=== PATIENT | female | born 1950 | race Caucasian/White ===

== ENCOUNTER 2018-07-05 11:45 | Day surgery (SDC) | payer MEDICARE ==
[2018-07-04 14:54] VITALS: BMI 25.7
[2018-07-05] MEDS ORDERED: PROPOFOL 200 MG/20 ML VIAL ONE (13:24)
--- NOTE | 2018-07-05 14:36 | RAD ---
LEFT KNEE 2 VIEWS: HISTORY: Fall. Left knee injury. FINDINGS: Joint spaces are preserved. No acute fracture, dislocation, or fluid distention in the suprapatellar bursa. IMPRESSION: No acute osseous abnormalities are demonstrated. POS: TOÑA
--- NOTE | 2018-07-05 20:20 | OP ---
DATE OF PROCEDURE: 07/05/2018 TITLE OF PROCEDURE: Colonoscopy with biopsy. PREPROCEDURE DIAGNOSES: 1. Right lower quadrant pain. 2. History of diverticulosis. 3. Colon cancer screening. POSTPROCEDURE DIAGNOSES: 1. Exam to distal terminal ileum; good bowel preparation. 2. Normal terminal ileum. 3. Mild diffuse diverticulosis coli without evidence of bleeding or infection. 4. Diminutive polyp (2 mm) in the sigmoid colon, removed by cold forceps. 5. Small internal hemorrhoids. 6. Otherwise normal colonoscopy. PROCEDURE IN DETAIL: Written informed consent was obtained. Upon completion of the EGD, the patient was repositioned for the colonoscopy. Total intravenous anesthesia was provided by Dr. Lula Starr. The patient was in the left lateral decubitus position. A digital rectal exam showed small external tag. A Pentax video colonoscope was inserted through the anal canal and advanced under visualization to the cecum. Position in the cecum was verified by identification of the appendiceal orifice and the ileocecal valve. The valve was intubated and a brief inspection was made at the distal terminal ileum. Quality of bowel preparation was good. Each colon segment was examined carefully as the colonoscope was slowly withdrawn from the cecum. Vascular pattern and haustral folds appeared normal. The distal terminal ileum was normal in appearance. Frequent diverticular orifices were noted throughout the sigmoid colon, but there was no evidence of infection or bleeding. In the sigmoid colon, a 2 mm sessile polyp was identified and excised by cold biopsy forceps. The tissue was submitted to Pathology for examination. No other synchronous polyps were identified. In the rectum, a retroflex view demonstrated small internal hemorrhoids that were not actively bleeding. The colon was decompressed as the colonoscope was removed from the patient. She was transferred to the Day Stay Surgery area for postprocedure monitoring. There were no immediate complications. RECOMMENDATIONS: 1. Resume previous medications. 2. High-fiber diet. 3. Pending pathology results, would recommend at this juncture to repeat colonoscopy in 5 years. 4. Follow up in my office as per the EGD report. 5. We will obtain x-ray of the left knee to evaluate pain and bruising in this area after an accidental fall at the hospital. Job ID: [id number]
--- NOTE | 2018-07-05 20:28 | OP ---
DATE OF PROCEDURE: 07/05/2018 TITLE OF PROCEDURE: Esophagogastroduodenoscopy with Savary dilation over guidewire and biopsy. PREPROCEDURE DIAGNOSES: 1. Dysphagia. 2. History of eosinophilic esophagitis. POSTPROCEDURE DIAGNOSES: 1. Exam to second portion of duodenum. 2. Diffusely narrowed esophagus, consistent with the patient's previous history of eosinophilic esophagitis. 3. 3 cm hiatal hernia. 4. Normal stomach. 5. Normal duodenum. 6. Status post 11 mm, 12 mm, and 12.8 mm Savary dilation over guidewire. 7. Biopsies obtained in the lower esophagus for histology. PROCEDURE IN DETAIL: Written informed consent was obtained. The patient was brought to the endoscopy suite. Total intravenous anesthesia was provided by Dr. Lula Starr. The patient was placed in the left lateral decubitus position. A bite block was inserted into the mouth. When adequate sedation was achieved, Pentax video pediatric gastroscope was introduced into the oral cavity, and the esophagus was carefully intubated. The gastroscope was advanced under direct visualization to the second portion of the duodenum. Endoscopic findings revealed diffuse narrowing of the entire esophagus with mild diffuse erythema, corrugated appearance to the mucosa especially in the mid esophagus and superficial linear furrowing. The appearance was suggestive for eosinophilic esophagitis. A 3-cm sliding hiatal hernia was identified. There was no evidence of esophageal or gastric ulcer. The stomach was entered and carefully examined. This included a retroflex view of the cardia and fundus. Besides the hiatal hernia, the stomach appeared normal. The duodenum from the bulb of the second portion was also examined and appeared grossly normal. Using a flexible-tip guidewire, the entire esophagus was dilated using 11 mm, 12 mm, and 12.8 mm Savary dilators. [id number] resistance was encountered with each dilation. The endoscope was reintroduced to examine the esophagus post dilation, and a small amount of oozing was noted in the proximal and distal esophagus without obvious tear or perforation. Biopsies were obtained in the lower esophagus for histology. The endoscope was then removed from the patient as the upper digestive tract was decompressed. She was repositioned for the colonoscopy. There were no immediate complications. RECOMMENDATIONS: 1. Await biopsy results. 2. Ask the patient to call me in 1 week for biopsy results. 3. Continue pantoprazole 40 mg b.i.d. 4. Continue budesonide slurry b.i.d. 5. Follow up with me in 6 weeks. Job ID: [id number]
== END 2018-07-05 15:40 | disposition home or self-care (01) ==
LOC: SDC 11:45
PROVIDERS: ATTEND Internal Medicine Gastroenterology
PROC: 0DB38ZX Excision of Lower Esophagus, Via Natural or Artificial Opening Endoscopic, Diagnostic (ICD-10-PCS; principal; 2018-07-05)
PROC: 0D758ZZ Dilation of Esophagus, Via Natural or Artificial Opening Endoscopic (ICD-10-PCS; 2018-07-05)
PROC: 0DBN8ZX Excision of Sigmoid Colon, Via Natural or Artificial Opening Endoscopic, Diagnostic (ICD-10-PCS; 2018-07-05)
DX: Z12.11 Encounter for screening for malignant neoplasm of colon (principal); K63.5 Polyp of colon; K20.0 Eosinophilic esophagitis; K57.30 Diverticulosis of large intestine without perforation or abscess without bleeding; K64.8 Other hemorrhoids; K44.9 Diaphragmatic hernia without obstruction or gangrene; K21.9 Gastro-esophageal reflux disease without esophagitis; K22.70 Barrett's esophagus without dysplasia; F32.9 Major depressive disorder, single episode, unspecified; Z79.899 Other long term (current) drug therapy
CPT/HCPCS: 88305; 88312; 88313

== ENCOUNTER 2018-09-13 12:02 | Day surgery (SDC) | payer MEDICARE ==
[2018-09-12 15:46] VITALS: BMI 25.2
[2018-09-13] MEDS ORDERED: PROPOFOL 200 MG/20 ML VIAL ONE (16:23)
--- NOTE | 2018-09-13 20:33 | OP ---
DATE OF PROCEDURE: 09/13/2018 PROCEDURE PERFORMED: Esophagogastroduodenoscopy with Savary dilation over guidewire. PREPROCEDURE DIAGNOSES: 1. Dysphagia. 2. Known history of eosinophilic esophagitis. 3. Esophageal strictures. POSTPROCEDURE DIAGNOSES: 1. Exam to second portion of duodenum. 2. Diffusely narrowed esophagus due to eosinophilic esophagitis. 3. Narrowest stricture just proximal to the hiatal hernia at 35 cm. 4. 1 to 2 cm sliding hiatal hernia. 5. Normal stomach. 6. Normal duodenum. 7. Status post Savary dilation over guidewire of the total esophagus using the 12 mm, 12.8 mm, and 14 mm dilators. ANESTHESIA: Total intravenous anesthesia provided by Dr. Amanda Lopez. PROCEDURE IN DETAIL: Written informed consent was obtained. The patient was brought to the endoscopy suite. Total intravenous anesthesia was provided by Dr. Lopez. The patient was placed in the left lateral decubitus position. A bite block was inserted into the mouth. A Pentax video diagnostic gastroscope was introduced into the oral cavity and the esophagus was carefully intubated. The gastroscope was advanced under direct visualization to the second portion of the duodenum. Endoscopic findings revealed diffusely narrowed esophagus due to EoE. The narrowest stricture was identified just proximal to the hiatal hernia at 35 cm. A 1 to 2 cm sliding hiatal hernia was also noted. No esophageal ulcers were seen. The stomach was entered and carefully examined. This included a retroflex view of the cardia and fundus. The stomach was unremarkable. The duodenum from the bulb to the second portion was then examined and appeared normal. Using a flexible tip Savary guidewire, the wire was introduced carefully into the gastric antrum as the endoscope was slowly withdrawn. Then, using the dilators, the entire esophagus was carefully dilated; first at 12 mm, then 12.8 mm, then 14 mm. Mild resistance was encountered with the 14 mm dilator. The endoscope was introduced to inspect the esophagus and 2 small esophageal disruptions were noted at 35 cm. There was no evidence of overt perforation. No active bleeding was seen at the conclusion of the exam. The endoscope was withdrawn as the stomach and esophagus were decompressed. The patient was transferred to the Day Stay surgery area for postprocedure monitoring. There were no immediate complications. RECOMMENDATIONS: 1. Resume diet, but would ask the patient to eat soft foods and liquids today and tomorrow. 2. May then liberalize diet to her usual foods in 3 days. 3. Continue Protonix 40 mg b.i.d. 4. Continue budesonide suspension 1 mg b.i.d. 5. Follow up with me in the office in 6 weeks. Job ID: [id number]
== END 2018-09-13 14:35 | disposition home or self-care (01) ==
LOC: SDC 12:02
PROVIDERS: ATTEND Internal Medicine Gastroenterology
PROC: 0D758ZZ Dilation of Esophagus, Via Natural or Artificial Opening Endoscopic (ICD-10-PCS; principal; 2018-09-13)
DX: K22.2 Esophageal obstruction (principal); K20.0 Eosinophilic esophagitis; K44.9 Diaphragmatic hernia without obstruction or gangrene; Z79.51 Long term (current) use of inhaled steroids; Z79.899 Other long term (current) drug therapy